=== PATIENT | male | born 1975 | race Caucasian/White ===

== ENCOUNTER 2020-06-12 13:53 | Inpatient (IN) | payer OTHER ==
[2020-06-12] MEDS ORDERED: LACTATED RINGERS SOLUTION 1000 ML INFUS.BAG IV ONE ×2 (14:53→14:57)
[2020-06-12] MEDS ORDERED: METOCLOPRAMIDE HCL INJECTION 10 MG/2 ML VIAL IVPUSH ONE (14:53)
[2020-06-12] MEDS ORDERED: KETOROLAC TROMETHAMINE 30 MG/1 ML VIAL IVPUSH ONE (14:53)
[2020-06-12] MEDS ORDERED: KETOROLAC TROMETHAMINE 30 MG/1 ML VIAL ONE (14:57)
[2020-06-12] MEDS ORDERED: METOCLOPRAMIDE HCL INJECTION 10 MG/2 ML VIAL ONE (14:57)
[2020-06-12 15:21] LABS: BASO % 0.2 % (0-2.0); HEMATOCRIT 56.6 % (35.4-49); HEMOGLOBIN 18.8 GM/dL (11.7-16.9); LYMPH % 11.2 % (8-40); MCH 31.1 pg (25.7-33.7); MCHC 33.1 g/dl (32.0-35.9); MEAN CELL VOLUME 93.7 fl (80-96); MEAN PLT VOLUME 9.8 fl (7.5-11.1); MONO % 6.4 % (3.8-10.2); NEUT % 82.2 % (42.8-82.8); PLATELET COUNT 100 K/MM3 (134-434); RBC 6.04 M/mm3 (4.00-5.60); RDW 13.8 % (11.9-15.9); WHITE BLOOD COUNT 5.1 K/mm3 (4.0-10.0)
[2020-06-12 15:28] LABS: INR 1.09 (0.83-1.09); PROTHROMBIN TIME (PATIENT) 13.4 SEC (9.7-13.0)
[2020-06-12 15:31] LABS: ACTIVATED PTT 33.7 SECONDS (25.2-36.5)
[2020-06-12 15:40] LABS: CHLORIDE 95 mmol/L (98-107); POTASSIUM 4.8 mmol/L (3.5-5.1); SODIUM 133 mmol/L (136-145)
[2020-06-12 15:42] LABS: CALCIUM 8.6 mg/dL (8.5-10.1)
[2020-06-12 15:43] LABS: ALBUMIN 3.2 g/dl (3.4-5.0); ANION GAP 8 MMOL/L (8-16); BLOOD UREA NITROGEN 12.7 mg/dL (7-18); CO2 30 mmol/L (21-32); GLUCOSE,RANDOM 101 mg/dL (74-106)
[2020-06-12] MEDS ORDERED: DEXAMETHASONE SOD PHOSPHATE 4 MG/1 ML VIAL IVPUSH ONE (15:43)
[2020-06-12 15:46] LABS: CREATININE 1.2 mg/dL (0.55-1.3); SGOT/AST 33 U/L (15-37); SGPT/ALT 35 U/L (13-61)
[2020-06-12 15:47] LABS: BILIRUBIN,TOTAL 0.4 mg/dL (0.2-1); LDH 334 U/L (87-246); TOT PROT 7.1 g/dl (6.4-8.2)
[2020-06-12 15:48] LABS: ALK PHOS 56 U/L (45-117)
[2020-06-12] MEDS ORDERED: DEXAMETHASONE SOD PHOSPHATE 10 MG/1 ML VIAL ONE (15:49)
[2020-06-12 16:13] LABS: VENOUS O2 SATURATION 32.2 % (70-80); VENOUS PCO2 55.7 mmHg (38-52); VENOUS PH 7.316 (7.310-7.410)
[2020-06-12 16:26] LABS: EPI CELLS 6 /uL (0-25.1); HYALINE CASTS 0 /uL (0-3.1); PH,URINE 6.5 (5.0-8.0); URINE APPEARANCE CLEAR; URINE BACTERIA 20 /uL (0-1359); URINE BILIRUBIN NEGATIVE (NEGATIVE); URINE COLOR YELLOW; URINE GLUCOSE (UA) NEGATIVE (NEGATIVE); URINE KETONE TRACE (NEGATIVE); URINE LEUK ESTERASE NEGATIVE (NEGATIVE); URINE NITRITE NEGATIVE (NEGATIVE); URINE PROTEIN 1+ (NEGATIVE); URINE RBC 48 /uL (0-23.9); URINE UROBILINOGEN 0.2 mg/dL (0.2-1.0); URINE WBC 6 /uL (0-25.8)
[2020-06-12] MEDS ORDERED: MIDAZOLAM HCL 2 MG/2 ML SINGLE DOSE VIAL IVPUSH ONE (16:33)
[2020-06-12] MEDS ORDERED: MIDAZOLAM HCL 2 MG/2 ML SINGLE DOSE VIAL ONE (16:35)
[2020-06-12] MEDS ORDERED: LIDOCAINE HCL 2% (20ML MULTI-DOSE VIAL) ONE (17:37)
[2020-06-12] MEDS ORDERED: LIDOCAINE HCL 2% (50ML VIAL) INF ONE (17:49)
[2020-06-12 18:22] LABS: BILIRUBIN,DIRECT 0.1 mg/dL (0.0-0.2)
[2020-06-12 23:57] VITALS: BMI 30.9
[2020-06-13] MEDS ORDERED: ALBUTEROL SO4 HFA INHALER IH PRN (00:48)
[2020-06-13] MEDS: DEXTROSE 5%-0.45% SALINE 1,000 ML IV SCH ×2 (01:24→13:48)
[2020-06-13] MEDS: DEXAMETHASONE SOD PHOSPHATE 4 MG/1 ML VIAL IVPUSH SCH ×3 (01:25→17:51)
[2020-06-13] MEDS: ACETAMINOPHEN 325 MG TABLET (FP) PO PRN ×2 (06:08→21:14)
[2020-06-13] MEDS: HEPARIN NA (PORCINE) 5,000 UNITS/ML 1ML VIAL SQ SCH ×2 (09:15→21:14)
[2020-06-13] MEDS ORDERED: REMDESIVIR 200 MG in SODIUM CHLORIDE 210 ML IVPB ONE (16:00)
[2020-06-14] MEDS: DEXAMETHASONE SOD PHOSPHATE 4 MG/1 ML VIAL IVPUSH SCH ×3 (01:05→17:45)
[2020-06-14] MEDS: DEXTROSE 5%-0.45% SALINE 1,000 ML IV SCH ×2 (01:43→06:30)
[2020-06-14] MEDS: ACETAMINOPHEN 325 MG TABLET (FP) PO PRN ×2 (06:01→12:53)
[2020-06-14 08:27] LABS: BASO % 0.1 % (0-2.0); HEMATOCRIT 48.4 % (35.4-49); HEMOGLOBIN 16.4 GM/dL (11.7-16.9); LYMPH % 5.4 % (8-40); MCHC 33.8 g/dl (32.0-35.9); MEAN CELL VOLUME 94.7 fl (80-96); MEAN PLT VOLUME 9.2 fl (7.5-11.1); MONO % 5.5 % (3.8-10.2); PLATELET COUNT 115 K/MM3 (134-434); RBC 5.11 M/mm3 (4.00-5.60); RDW 13.6 % (11.9-15.9); WHITE BLOOD COUNT 7.5 K/mm3 (4.0-10.0)
[2020-06-14 08:51] LABS: CALCIUM 7.6 mg/dL (8.5-10.1)
[2020-06-14 08:52] LABS: ALBUMIN 2.7 g/dl (3.4-5.0); BLOOD UREA NITROGEN 11.7 mg/dL (7-18)
[2020-06-14 08:56] LABS: BILIRUBIN,TOTAL 0.5 mg/dL (0.2-1)
[2020-06-14] MEDS: HEPARIN NA (PORCINE) 5,000 UNITS/ML 1ML VIAL SQ SCH ×2 (09:02→21:32)
[2020-06-14] MEDS: REMDESIVIR 100 MG in SODIUM CHLORIDE 230 ML IVPB SCH (15:32)
[2020-06-14] MEDS: diphenhydrAMINE HCL 25 MG CAPSULE (FP) PO PRN (21:31)
[2020-06-15] MEDS: DEXTROSE 5%-0.45% SALINE 1,000 ML IV SCH ×2 (00:54→15:16)
[2020-06-15] MEDS: DEXAMETHASONE SOD PHOSPHATE 4 MG/1 ML VIAL IVPUSH SCH ×3 (01:02→18:25)
[2020-06-15 08:22] LABS: BASO % 0.1 % (0-2.0); HEMATOCRIT 50.6 % (35.4-49); HEMOGLOBIN 16.7 GM/dL (11.7-16.9); LYMPH % 6.7 % (8-40); MCH 31.4 pg (25.7-33.7); MEAN CELL VOLUME 94.9 fl (80-96); MEAN PLT VOLUME 9.6 fl (7.5-11.1); MONO % 8.1 % (3.8-10.2); NEUT % 85.1 % (42.8-82.8); PLATELET COUNT 132 K/MM3 (134-434); RBC 5.33 M/mm3 (4.00-5.60); RDW 13.4 % (11.9-15.9)
[2020-06-15 09:21] LABS: POTASSIUM 4.4 mmol/L (3.5-5.1)
[2020-06-15 09:29] LABS: CALCIUM 8.1 mg/dL (8.5-10.1)
[2020-06-15 09:30] LABS: ALBUMIN 2.7 g/dl (3.4-5.0)
[2020-06-15 09:33] LABS: CREATININE 0.9 mg/dL (0.55-1.3)
[2020-06-15 09:34] LABS: BILIRUBIN,TOTAL 0.6 mg/dL (0.2-1); BLOOD UREA NITROGEN 13.1 mg/dL (7-18); TOT PROT 5.9 g/dl (6.4-8.2)
[2020-06-15] MEDS: HEPARIN NA (PORCINE) 5,000 UNITS/ML 1ML VIAL SQ SCH ×2 (11:03→21:04)
[2020-06-15] MEDS: REMDESIVIR 100 MG in SODIUM CHLORIDE 230 ML IVPB SCH (16:39)
[2020-06-15] MEDS: diphenhydrAMINE HCL 25 MG CAPSULE (FP) PO PRN (21:17)
[2020-06-16] MEDS: DEXAMETHASONE SOD PHOSPHATE 4 MG/1 ML VIAL IVPUSH SCH ×3 (01:11→17:09)
[2020-06-16] MEDS: DEXTROSE 5%-0.45% SALINE 1,000 ML IV SCH (04:29)
[2020-06-16] MEDS: HEPARIN NA (PORCINE) 5,000 UNITS/ML 1ML VIAL SQ SCH ×2 (10:37→21:37)
[2020-06-16] MEDS ORDERED: PT OWN MED DRAWER 7, Y5N ONE (14:57)
[2020-06-16] MEDS: REMDESIVIR 100 MG in SODIUM CHLORIDE 230 ML IVPB SCH (16:14)
[2020-06-16] MEDS: ZINC SULFATE 220 MG CAPSULE (FP) PO SCH (17:59)
[2020-06-16] MEDS: diphenhydrAMINE HCL 25 MG CAPSULE (FP) PO PRN (21:38)
[2020-06-16] MEDS: FAMOTIDINE 20 MG TABLET PO SCH (21:38)
[2020-06-16] MEDS: ASCORBIC ACID 500 MG TABLET (FP) PO SCH (21:38)
[2020-06-17 09:14] LABS: POTASSIUM 4.6 mmol/L (3.5-5.1)
[2020-06-17 09:26] LABS: BASO % 0.1 % (0-2.0); HEMATOCRIT 52.5 % (35.4-49); HEMOGLOBIN 17.5 GM/dL (11.7-16.9); LYMPH % 8.2 % (8-40); MCH 31.5 pg (25.7-33.7); MCHC 33.3 g/dl (32.0-35.9); MEAN CELL VOLUME 94.5 fl (80-96); MEAN PLT VOLUME 9.4 fl (7.5-11.1); MONO % 7.7 % (3.8-10.2); PLATELET COUNT 195 K/MM3 (134-434); RBC 5.56 M/mm3 (4.00-5.60); RDW 13.6 % (11.9-15.9); WHITE BLOOD COUNT 11.4 K/mm3 (4.0-10.0)
[2020-06-17] MEDS: HEPARIN NA (PORCINE) 5,000 UNITS/ML 1ML VIAL SQ SCH ×2 (09:37→21:09)
[2020-06-17] MEDS: DEXAMETHASONE SOD PHOSPHATE 4 MG/1 ML VIAL IVPUSH SCH (09:37)
[2020-06-17] MEDS: FAMOTIDINE 20 MG TABLET PO SCH ×2 (09:37→21:10)
[2020-06-17] MEDS: ZINC SULFATE 220 MG CAPSULE (FP) PO SCH (09:38)
[2020-06-17] MEDS: ASCORBIC ACID 500 MG TABLET (FP) PO SCH ×2 (09:38→21:10)
[2020-06-17 09:43] LABS: BLOOD UREA NITROGEN 11.8 mg/dL (7-18); CALCIUM 7.9 mg/dL (8.5-10.1)
[2020-06-17 09:44] LABS: ALBUMIN 2.5 g/dl (3.4-5.0); TOT PROT 5.6 g/dl (6.4-8.2)
[2020-06-17 09:47] LABS: CREATININE 0.9 mg/dL (0.55-1.3)
[2020-06-17 09:48] LABS: BILIRUBIN,TOTAL 0.5 mg/dL (0.2-1)
[2020-06-17] MEDS: REMDESIVIR 100 MG in SODIUM CHLORIDE 230 ML IVPB SCH (15:28)
[2020-06-17] MEDS: diphenhydrAMINE HCL 25 MG CAPSULE (FP) PO PRN (21:10)
[2020-06-18] MEDS ORDERED: PT OWN MED DRAWER 7, Y5N ONE (09:11)
[2020-06-18] MEDS: ASCORBIC ACID 500 MG TABLET (FP) PO SCH (09:24)
[2020-06-18] MEDS: DEXAMETHASONE SOD PHOSPHATE 4 MG/1 ML VIAL IVPUSH SCH (09:24)
[2020-06-18] MEDS: FAMOTIDINE 20 MG TABLET PO SCH (09:24)
[2020-06-18] MEDS: ZINC SULFATE 220 MG CAPSULE (FP) PO SCH (09:24)
[2020-06-18] MEDS: HEPARIN NA (PORCINE) 5,000 UNITS/ML 1ML VIAL SQ SCH (09:27)
[2020-06-18 15:09] VITALS: BP 133/80; PULSE 78; TEMP 97.9
== END 2020-06-18 16:57 | disposition home or self-care (01) | DRG 137 ==
LOC: JER 13:53 → JERBED 19:41 → J6S 23:34 → J5S 06-15 14:48
PROVIDERS: ADMIT Internal Medicine; ATTEND Internal Medicine
PROC: 009U3ZX Drainage of Spinal Canal, Percutaneous Approach, Diagnostic (ICD-10-PCS; principal; 2020-06-12)
PROC: B01BZZZ Fluoroscopy of Spinal Cord (ICD-10-PCS; 2020-06-12)
PROC: XW13325 Transfusion of Convalescent Plasma (Nonautologous) into Peripheral Vein, Percutaneous Approach, New Technology Group 5 (ICD-10-PCS; 2020-06-12)
PROC: XW033E5 Introduction of Remdesivir Anti-infective into Peripheral Vein, Percutaneous Approach, New Technology Group 5 (ICD-10-PCS; 2020-06-12)
DX: U07.1 COVID-19 (principal); J96.01 Acute respiratory failure with hypoxia; J12.89 Other viral pneumonia; R50.9 Fever, unspecified; D75.1 Secondary polycythemia; R43.9 Unspecified disturbances of smell and taste; R51.9 Headache, unspecified; R63.0 Anorexia; Z68.31 Body mass index [BMI] 31.0-31.9, adult
CPT/HCPCS: 36415; 36430; 71045-TC-FY; 71250-TC; 80053; 81003; 82248; 82550; 82553; 82728; 82803; 83605; 83615; 84484; 85025; 85379; 85610; 85730; 86140; 86850; 86900; 86901; 87040; 87086; 87804; 93005; 93010; 94761; 99285-25; C9803; J1644; P9017; U0003